=== PATIENT | male | born 1945 | race Caucasian/White ===

== ENCOUNTER 2023-04-27 08:48 | Emergency (ER) | payer MEDICARE ==
[~2023-04-27] VITALS: Ht 160 cm; Wt 59.1 kg
[~2023-04-27 08:48] MED LIST: LEVO-72 PO; PRED-554 PO
[2023-04-27 09:02] VITALS: TEMP 98
[2023-04-27 09:06] VITALS: BP 152/94; PULSE 98; RESP 16
[2023-04-27] MEDS ORDERED: FLUT1BLS18 IH (09:13)
== END 2023-04-27 09:35 | disposition home or self-care (01) ==
LOC: EMS 09:02
DX: R06.00 Dyspnea, unspecified (principal); J44.9 Chronic obstructive pulmonary disease, unspecified; I10 Essential (primary) hypertension; F17.210 Nicotine dependence, cigarettes, uncomplicated
CPT/HCPCS: 99283; Z7502

== ENCOUNTER 2023-07-27 17:39 | Emergency (ER) | payer MEDICARE ==
[~2023-07-27] VITALS: Ht 167.6 cm; Wt 74.0 kg
[~2023-07-27 17:39] MED LIST changes: +FLUT1BLS18 IH
[2023-07-27 22:54] LABS: BASOPHILS % (AUTO) 2.5 % (0.0-2.0); EOSINOPHILS % (AUTO) 1.4 % (1.0-6.0); HEMATOCRIT 41.4 % (41-53); HEMOGLOBIN 13.7 g/dL (13.5-17.5); LYMPHOCYTES # (AUTO) 0.8 K/uL (1.0-4.8); LYMPHOCYTES % (AUTO) 15.3 % (22.0-44.0); MEAN CORPUSCULAR HEMOGLOBIN 32.3 pg (26.0-34.0); MEAN CORPUSCULAR VOLUME 98 fL (80-100); MONOCYTES # (AUTO) 0.4 K/uL (0.1-1.0); NEUTROPHILS # (AUTO) 3.9 K/uL (1.8-7.7); NEUTROPHILS % (AUTO) 73.8 % (40.0-70.0); PLATELET COUNT (AUTO) 407 K/uL (150-450); RED BLOOD CELL COUNT(AUTO) 4.23 MIL/uL (4.50-5.90); RED CELL DISTRIBUTION WIDTH 17.8 % (11.5-14.5); WHITE BLOOD COUNT (AUTO) 5.3 K/uL (4.5-11.0)
[2023-07-27 23:00] LABS: CALCIUM, TOTAL 8.7 mg/dL (8.8-10.5); CREATININE 1.26 mg/dL (0.60-1.30); POTASSIUM 4.7 mmol/L (3.5-5.1)
[2023-07-28] MEDS ORDERED: BACI28.410 TP (00:46)
[2023-07-28] MEDS ORDERED: ALBU18HF12 IH (00:46)
[2023-07-28] MEDS ORDERED: DOXY-354 PO (00:46)
[2023-07-28 00:51] VITALS: BP 139/64; TEMP 98
[2023-07-28] MEDS: DOXYCYCLINE HYCLATE 100 MG TABLET PO ONE (00:56)
[2023-07-28] MEDS: ALBUTEROL SULFATE 2.5 MG/0.5 ML NEB SOLUTION NEB ONE (00:59)
[2023-07-28] MEDS: IPRATROPIUM BROMIDE 0.5 MG/2.5 ML NEB SOLUTION NEB ONE (00:59)
[2023-07-28 01:05] VITALS: PULSE 101; RESP 20; O2SAT 98
[2023-07-28] MEDS: BACITRACIN 28 GM OINTMENT TP ONE (01:22)
== END 2023-07-28 02:01 | disposition home or self-care (01) ==
LOC: EMS 17:40
DX: S00.00XD Unspecified superficial injury of scalp, subsequent encounter (principal); F10.129 Alcohol abuse with intoxication, unspecified; J44.9 Chronic obstructive pulmonary disease, unspecified; I10 Essential (primary) hypertension; F17.210 Nicotine dependence, cigarettes, uncomplicated; Z48.02 Encounter for removal of sutures; X58.XXXD Exposure to other specified factors, subsequent encounter; Y90.9 Presence of alcohol in blood, level not specified
CPT/HCPCS: 99283; 80048; 85025; 36415; 94640; G0480